=== PATIENT | male | born 1995 | race Two or more races ===

== ENCOUNTER 2021-05-09 14:38 | Emergency (ER) | payer OTHER ==
[~2021-05-09] VITALS: Ht 165.1 cm; Wt 72.6 kg
[2021-05-09] MEDS ORDERED: INTESTINEX680 M1 PO (17:02)
[2021-05-09] MEDS ORDERED: NAPROXEN375 MG PO (17:02)
[2021-05-09] MEDS ORDERED: AMOX-CLAV 875-1 EACH PO (17:02)
[2021-05-09] MEDS ORDERED: ZYRTEC10 MG PO (17:03)
== END 2021-05-09 18:02 | disposition home or self-care (01) ==
LOC: ER 14:38
DX: H66.91 Otitis media, unspecified, right ear (principal); H92.01 Otalgia, right ear